=== PATIENT | female | born 1935 | race Hispanic/Latino ===

== ENCOUNTER → 2018-11-14 | Outpatient (CLI) | payer OTHER, MEDICARE ==
[~2018-11-14] MED LIST: ATOR10 PO; CALC-862 PO; IRON1CAP32 PO; LOSA25TA41 PO; METF-444 PO; PHEN200C5 PO; RAMI2.5C16 PO; SERT50TA12 PO
== END | disposition home or self-care (01) ==
LOC: RAH 08:27
PROVIDERS: ATTEND Internal Medicine Gastroenterology
DX: D50.9 Iron deficiency anemia, unspecified (principal)
CPT/HCPCS: 74240

== ENCOUNTER → 2018-11-15 | Outpatient (CLI) | payer OTHER, MEDICARE | END | disposition home or self-care (01) | LOC: RAH 08:07 | PROVIDERS: ATTEND Internal Medicine Gastroenterology | DX: D50.9 Iron deficiency anemia, unspecified (principal); M47.815 Spondylosis without myelopathy or radiculopathy, thoracolumbar region | CPT/HCPCS: 74018 ==

== ENCOUNTER → 2018-11-20 | Outpatient (CLI) | payer OTHER, MEDICARE | END | disposition home or self-care (01) | LOC: RAH 07:49 | PROVIDERS: ATTEND Internal Medicine Gastroenterology | DX: D50.9 Iron deficiency anemia, unspecified (principal) | CPT/HCPCS: 74270 ==

== ENCOUNTER → 2018-12-02 | Outpatient (CLI) | payer OTHER, MEDICARE | END | disposition home or self-care (01) | LOC: RAH 08:44 | PROVIDERS: ATTEND Internal Medicine Gastroenterology | DX: D50.9 Iron deficiency anemia, unspecified (principal) | CPT/HCPCS: 74270 ==